=== PATIENT | female | born 1935 | race Caucasian/White ===

== ENCOUNTER → 2023-04-11 | Day surgery (SDC) | payer MEDICARE ==
[~2023-04-11] MED LIST: fentaNYL PF 100 MCG/2 ML SYRINGE ONE
[2023-04-11 09:45] LABS: #Eosinphils 0.3 thou/uL (0.0-0.7); #Monocytes 0.7 thou/uL (0.11-0.59); #Neutrophils 3.6 thou/uL (1.40-6.50); %Basophils 0.5 % (0.0-1.0); %Eosinophils 4.4 % (0.0-10.0); %Lymphocytes 26.8 % (21.0-51.0); %Monocytes 10.6 % (0.0-10.0); %Neutrophils 57.4 % (42.0-75.0); Hematocrit 17.6 % (36.0-47.0); Hemoglobin 4.2 g/dL (12.0-16.0); Mean Corpuscular Volume 58.5 fl (78.0-98.0); Mean Platelet Volume 9.8 fL (7.4-10.4); Platelet Count 510 10x3/uL (130-400); RBC Distribution Width 22.9 % (11.5-14.5); Red Blood Cell (RBC) Count 3.01 mill/uL (4.20-5.40); White Blood Cell (WBC) Count 6.3 10x3/uL (4.8-10.8)
[2023-04-11 09:46] LABS: Anion Gap 11 mmol/L (10-20); BUN (Urea Nitrogen) 11 mg/dL (9.8-20.1); Calc. Creatinine Clearance 41 mL/min (70-130); Calcium 8.9 mg/dL (7.8-10.44); Carbon Dioxide 23 mmol/L (23-31); Chloride 109 mmol/L (98-107); Estimated GFR 76; Glucose 94 mg/dL (83-110); Potassium 4.2 mmol/L (3.5-5.1); Sodium 139 mmol/L (136-145)
[2023-04-11 09:50] LABS: Mean Corpuscular HGB CONC 23.9 g/dL (32.0-36.0)
[2023-04-11 10:25] LABS: Hematocrit 17.1 % (36.0-47.0); Hemoglobin 4.1 g/dL (12.0-16.0)
[2023-04-11 11:50] LABS: Microcytosis MARKED = >30 cells (100X) (0-5/hpf); Polychromasia SLIGHT = 2-3 cells (100X) (0-2/hpf); Tear Drops SLIGHT = 2-5 cells (100X) (0-1/hpf)
[2023-04-11 11:51] LABS: Elliptocytes SLIGHT = 2-5 cells (100X) (0-1/hpf); Hypochromia MARKED = >30 cells (100X) (0-5/hpf); Ovalocytes MODERATE= 6-15 cells (100X) (0-1/hpf); Platelet Adequacy Comment Platelets Increased; Reflex for Review?? YES; Schistocytes SLIGHT = 2-5 cells (100X) (0-1/hpf)
== END ==
LOC: SDC 06:47
PROVIDERS: ATTEND Specialist
DX: C44.222 Squamous cell carcinoma of skin of right ear and external auricular canal (principal); H61.91 Disorder of right external ear, unspecified; K21.9 Gastro-esophageal reflux disease without esophagitis; Z53.8 Procedure and treatment not carried out for other reasons
CPT/HCPCS: 80048; 85025; 85060; 86850; 86900; 86901; 93005; 93010